=== PATIENT | male | born 1960 | race Caucasian/White ===

== ENCOUNTER 2016-03-03 09:24 | Emergency (ER) | payer OTHER ==
[~2016-03-03 09:24] MED LIST: PERCOCET1 TA1 PO; VISTARIL25 MG PO
--- NOTE | 2016-03-03 12:23 | DIAGNOSTIC IMAGING REPORT ---
PROCEDURE: US ART LOWER EXT DOPPLER-LEFT INDICATION: Left leg pain. TECHNIQUE: Color Doppler duplex imaging of the lower extremity was performed. COMPARISON: None. FINDINGS: VESSELS: There is minimal atheromatous plaque. LOWER EXTREMITY PEAK SYSTOLIC VELOCITIES: External iliac: Triphasic 90 cm/second. Common femoral artery: Triphasic 87 cm/second. Profunda femoral artery: Triphasic 55 cm/second. Proximal superficial femoral artery: Triphasic 115 cm/second. Mid superficial femoral artery: Triphasic 135 cm/second. Distal superficial femoral artery: Triphasic 91 cm/second. Popliteal artery: Triphasic 90 cm/second. Proximal posterior tibial artery: Triphasic 81 cm/second. Proximal anterior tibial artery: Triphasic 40 cm/second. Peroneal artery: N/A cm/second. Distal posterior tibial artery: Triphasic 83 cm/second. Dorsalis pedis artery: Triphasic 44 cm/second. IMPRESSION: 1. Minimal atheromatous plaque. 2. Otherwise negative arterial ultrasound of the left lower extremity. No evidence of arterial insufficiency.
--- NOTE | 2016-03-03 12:33 | DIAGNOSTIC IMAGING REPORT ---
PROCEDURE: US VENOUS - LEFT EXT INDICATION: SWELLING TECHNIQUE: Color Doppler duplex imaging of the deep and superficial venous system without and with compression. COMPARISON: None. FINDINGS: Deep and superficial venous system of the left lower extremity is within normal limits. There is no evidence of deep vein thrombosis or superficial thrombophlebitis. There is a 4.8 cm echogenic area with shadowing adjacent to the medial left knee. There is a 9 x 8.4 x 5.7 cm proteinaceous fluid collection in the proximal medial calf. IMPRESSION: 1. Negative venous ultrasound of the left lower extremity. No evidence of deep vein thrombosis or superficial thrombophlebitis. 2. There is 4.8 cm shadowing calcification adjacent to the medial left knee which may be post traumatic. 3. There is a 9 x 8.4 x 5.7 cm proteinaceous fluid collection in the proximal medial left calf most consistent with an evolving hematoma. 4. Radiographs of the left knee and tibia may be of assistance in evaluating. 5. Findings discussed Dr. Santos.
--- NOTE | 2016-03-03 13:38 | ED CLINICAL REPORT ---
Clinical Report - Physicians/Mid Levels [address] [place] [address] 03/03/2016 9:24 [id number] Time Seen: 09:55 Mar 03 2016. Arrived- By private vehicle. Historian- patient. CPT: ER phys charges level 4 (#[id number]). HISTORY OF PRESENT ILLNESS Chief Complaint: LOWER EXTREMITY PAIN. Severity is described as being moderate. It has become recently worse. The quality is noted to be sharp, aching and "pain". (hurt left ankle and foot 6 weeks ago. Was told to stay off of it and he did for 3 weeks until he had to go back to work. Over the past 2 weeks he has developed severe pain in the LLE from the knee down and notes his great toe has turned purple now.). Symptoms located in the area of the left knee, left leg, left foot and left ankle. The patient has not had redness. No swelling, bladder dysfunction, bowel dysfunction or motor loss. He has had difficulty walking. Moderate sensory loss involving the left foot. Patient notes an injury. Similar symptoms previously: None. Recent medical care: The patient was seen recently at this facility (6 weeks ago). Seen for similar symptoms. Evaluation/treatment: x-rays. Diagnosis: (left ankle sprain.). REVIEW OF SYSTEMS No cough, chest pain, difficulty breathing, fever or skin rash. No enlarged lymph nodes, neck pain, back pain, sore throat or abdominal pain. No vomiting or diarrhea. All systems otherwise negative, except as recorded above. PAST HISTORY ( Arthroscopy left knee by Dr Castañeda 1975: Cleaned up joint. Pt told he needs a total knee but is too young at this time. Chronic pain.). Medications: Advil Oral, as needed. Allergies: No Known Drug Allergy. SOCIAL HISTORY Light tobacco smoker (cigarette)- less than 1/2 a pack per day. Occasional alcohol use. History of drug use: marijuana. ADDITIONAL NOTES The nursing notes have been reviewed. PHYSICAL EXAM Vital Signs: 03/03/2016 09:36 BP: 122/106. HR: 76. RR: 20. O2 saturation: 100%. Temp: 97.5 F. Pain level now: 11/19. Appearance: Alert. Appears to be in pain. Patient in moderate distress. Eyes: Eyes normal inspection. ENT: Pharynx normal. Neck: Normal inspection. CVS: Normal heart rate and rhythm. Heart sounds normal. Respiratory: No respiratory distress. Breath sounds normal. Abdomen: Soft and nontender. Back: No tenderness. Skin: Skin warm. Normal skin color. Extremities: Left knee: moderate tenderness and deformity and mild swelling located in the posterior knee. Limited ROM secondary to pain. Small joint effusion present. Neurovascular intact distally. No ligamentous laxity present. No abrasion or ecchymosis. Left ankle: mild tenderness localized to the lateral ligaments. Limited ROM secondary to pain. Neurovascular intact distally. No ligamentous laxity present. No joint effusion. No swelling, laceration, abrasion, ecchymosis or deformity. Moderate left-sided calf tenderness. (no motor deficit. Reports numbness left foot and ankle but can feel light to puch.). Gait: The patient was unable to bear weight. Neuro, Vascular and Tendons: Left dorsalis pedis and left posterior tibial pulse deficit. Lower extremity capillary refill not prolonged. Neuro: Oriented X 3. No motor deficit. No sensory deficit. Reflexes normal. LABS, X-RAYS, AND EKG Lt Knee X-ray: No fracture. (severe DJD with abundant calcification and hyperostosis. No acute findings.). Views: AP, lateral and oblique. Technique: good. The X-rays were independently viewed by me and interpreted contemporaneously by me. Lower Extremity Sonography: Calcific mass in the lateral popliteal area , left knee. Liquified hematoma in the proximal calf. Study type: utilized color Doppler sonography. The exam was performed by a manufacturing plant technician. The study was independently viewed by me, interpreted by the radiologist and discussed with the radiologist. PROGRESS AND PROCEDURES Course of Care: Percocet 2 po : no change. Heplock Dilaudid 0.5 mg IV times 2 Ativan 0.5 mg IV 2 Patient's better with these meds. Patient is stable. Symptoms better. Discussed follow-up with orthopedic surgery to evaluate the knee the resolving hematoma and ankle injury. He will use crutches as needed for weightbearing. Patient/family counseled. Disposition: Discharged. Condition: stable. CLINICAL IMPRESSION Recovering left ankle sprain Severe DJD left knee Resolving hematoma left proximal calf. Chronic and progressive left knee pain. INSTRUCTIONS Use crutches as needed. No strenuous activity. You may walk and bear weight as tolerated. Warnings: Further evaluation is necessary. SEDATIVE MEDICATION: You were given sedative medication during your visit. Do not drive or operate dangerous machinery. Your Current Medications: CONTINUE TAKING THE FOLLOWING MEDICATIONS: Advil Oral : prn. Prescription Medications: Oxycodone/APAP 5 mg/325 mg: take 1-2 tablets orally every 4 hours as needed for pain. Dispense twenty-five (25). No refill. Soma 350 mg: Take 1 orally every 6 hours as needed for muscle spasm. Dispense twenty (20). No refills. Substitution is permissible. Follow-up: Follow up with an orthopedic surgeon. Call for the next available appointment. Understanding of the discharge instructions verbalized by patient and family. Discharge instructions reviewed with and understanding was verbalized by spouse. (Electronically signed by Ta Santos MD 03/03/2016 14:39)
--- NOTE | 2016-03-03 13:38 | ED NURSING NOTES ---
Clinical Report - Nurses [facility] [address] [place] [address] 03/03/2016 9:24 [id number] Triage time 09:36. Acuity: LEVEL 5. Chief Complaint: LEFT LOWER EXTREMITY PAIN and NUMBNESS. Location of symptoms- ("left great toe is turning a dark color"). Alert. --09:41 Yessy Gutierres R.N. 09:36 03/03/16. BP: 122/106. HR: 76. RR: 20. O2 saturation: 100%. Temp: 97.5 F. Pain level now: 11/19. --09:41 Yessy Gutierres R.N. Weight: 95.2 kg stated. Height/Length: 72 inches Per Patient. BMI: 28.5. --09:38 Yessy Gutierres R.N. Medications Advil Oral, as needed. --09:38 Yessy Gutierres R.N. Allergies No Known Drug Allergy. --09:38 Yessy Gutierres R.N. History Arrived by private vehicle. Historian: patient. Accompanied by spouse. Primary physician (none). ( Pt was "going to try to go to [facility]"). This occurred (6 weeks ago). Provoking / relieving factors: worsened by movement to the left, standing, walking and nothing; relieved by nothing. ( muscle spasms in arch of left foot). 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 SOCIAL HX: Heavy tobacco smoker (cigarette)- less than 1 pack per day. Occasional alcohol use. History of drug use: marijuana. --09:41 Yessy Gutierres R.N. Interventions ID band on patient. To room. --09:41 Yessy Gutierres R.N. PHYSICAL ASSESSMENT 09:42 03/03/16. GENERAL / NEURO / PSYCH: Appears in pain and anxious. --09:42 Yessy Gutierres R.N. NURSING PROGRESS NOTES 09:42 03/03/16. Patient identifiers checked. Call light placed in reach. Bed placed in lowest position. Patient ready for evaluation- chart flagged. --09:42 Yessy Gutierres R.N. 10:06 03/03/2016 Oxycodone-APAP (Oxycodone-Acetaminophen) PO 5/325 mg Tablets 2 tab given. Allergies verified, confirmed 5 rights and sedative warning given to the patient and patient's family. --10:06 Yessy Gutierres R.N. 10:06 03/03/2016 Flexeril (Cyclobenzaprine HCl) PO 10 mg given. Allergies verified and confirmed 5 rights. --10:06 Yessy Gutierres R.N. 10:34 03/03/2016 Site #1 started via IV in the right wrist with an 20g angiocath; one attempt. Blood drawn: rainbow set. Labeled in the presence of the patient and sent to the lab. Saline lock flushed with 10 mL saline. --10:44 Yessy Gutierres R.N. 10:36 03/03/2016 Ativan (LORazepam) IVP 0.5 mg given over 1 minute(s) via site #1. Confirmed 5 rights and sedative warning given. --10:45 Yessy Gutierres R.N. 10:38 03/03/2016 Dilaudid (HYDROmorphone HCl PF) IVP 0.5 mg given over 1 minute(s) via site #1. Allergies verified and confirmed 5 rights. IV flushed thoroughly pre- and post-medication administration. --10:45 Yessy Gutierres R.N. 10:32. ( Upon entering pt room, pt states he is "passing out", and noted that he was hyperventilating. Tried to get pt to slow down his breathing, and explained why. Pt seems annoyed with teaching. Pt instructed that we are going to give him some IV medications to help with his pain and anxiety.). --10:48 Yessy Gutierres R.N. 10:48 03/03/16. HR: 78. O2 saturation: 92%. Additional comments: continuous sat monitor placed. --10:49 Yessy Gutierres R.N. 11:52 03/03/16. HR: 69. O2 saturation: 96%. --11:52 Yessy Gutierres R.N. 12:10 03/03/16. BP: 112/82. HR: 75. RR: 18. O2 saturation: 98%. Pain level now: 08/19. --12:10 Yessy Gutierres R.N. 12:06 03/03/2016 Ativan (LORazepam) IVP 0.5 mg given over 1 minute(s) via site #1. Confirmed 5 rights and sedative warning given. --12:11 Yessy Gutierres R.N. 12:08 03/03/2016 Dilaudid (HYDROmorphone HCl PF) IVP 0.5 mg given over 1 minute(s) via site #1. Confirmed 5 rights and sedative warning given. --12:11 Yessy Gutierres R.N. 12:59 03/03/16. HR: 74. O2 saturation: 94%. Pain level now: 04/19. --12:59 Yessy Gutierres R.N. Locked/Released at 03/05/2016 10:28 by Marsah Rod R.N.
--- NOTE | 2016-03-03 13:38 | ED ORDER SUMMARY ---
..... Patient: HUNTER MICHAEL OrderSheet [facility] VisitID: [id number] [place] [address] 55y, M Registration Date/Time: 03/03/2016 ORDER SHEET Weight: 95.2 kg (stated) Allergies: No Known Drug Allergy GENERAL ORDERS: US Art Low Ext Doppler Left Urgent (10:03/03/2016 Soco LEE) (Ack 10:02 LMuller) (11:44 LMuller) US Venous Left Urgent (10:03/03/2016 Soco LEE) (Ack 10:02 LMuller) (11:44 LMuller) Knee 4V Left Urgent (12:42 03/03/2016 Soco LEE) (Ack 12:42 LMuller) (12:47 LMuller) MEDICATION ORDERS: Oxycodone-APAP PO 10/650 mg (NOW) (10:03/03/2016 Soco LEE) (10:06 LSullivan R.N.) Flexeril PO 10 mg (NOW) (10:03/03/2016 Soco LEE) (10:06 LSullivan R.N.) IV FLUIDS: IV Saline Lock (10:43 03/03/2016 LSullivan R.N. verbal order read back to Soco LEE) (10:44 LSullivan R.N.) Ativan IV 0.5 mg (HIGH ALERT MEDICATION, NOW) (10:43 03/03/2016 LSullivan R.N. verbal order read back to Soco LEE) (10:45 LSullivan R.N.) Dilaudid IV 0.5 mg (NOW) (10:43 03/03/2016 LSullivan R.N. verbal order read back to Soco LEE) (10:45 LSullivan R.N.) Dilaudid IV 0.5 mg (NOW) (12:03/03/2016 Soco LEE) (12:11 LSullivan R.N.) Ativan IV 0.5 mg (NOW) (12:03/03/2016 Soco LEE) (12:11 LSullivan R.N.) ORDER SHEET NOTES: [Electronically signed by Ta Santos MD (14:39 03/03/2016)] [Electronically signed by Marsha Rod R.N. (03/05/2016)] [Electronically locked/signed by Marsha Rod R.N. (03/05/2016)]
--- NOTE | 2016-03-03 13:38 | ED NURSING NOTES ---
Clinical Report - Nurses [facility] [address] [place] [address] 03/03/2016 9:24 [id number] Triage time 09:36. Acuity: LEVEL 5. Chief Complaint: LEFT LOWER EXTREMITY PAIN and NUMBNESS. Location of symptoms- ("left great toe is turning a dark color"). Alert. --09:41 Yessy Gutierres R.N. 09:36 03/03/16. BP: 122/106. HR: 76. RR: 20. O2 saturation: 100%. Temp: 97.5 F. Pain level now: 11/19. --09:41 Yessy Gutierres R.N. Weight: 95.2 kg stated. Height/Length: 72 inches Per Patient. BMI: 28.5. --09:38 Yessy Gutierres R.N. Medications Advil Oral, as needed. --09:38 Yessy Gutierres R.N. Allergies No Known Drug Allergy. --09:38 Yessy Gutierres R.N. History Arrived by private vehicle. Historian: patient. Accompanied by spouse. Primary physician (none). ( Pt was "going to try to go to [facility]"). This occurred (6 weeks ago). Provoking / relieving factors: worsened by movement to the left, standing, walking and nothing; relieved by nothing. ( muscle spasms in arch of left foot). 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 SOCIAL HX: Heavy tobacco smoker (cigarette)- less than 1 pack per day. Occasional alcohol use. History of drug use: marijuana. --09:41 Yessy Gutierres R.N. Interventions ID band on patient. To room. --09:41 Yessy Gutierres R.N. PHYSICAL ASSESSMENT 09:42 03/03/16. GENERAL / NEURO / PSYCH: Appears in pain and anxious. --09:42 Yessy Gutierres R.N. NURSING PROGRESS NOTES 09:42 03/03/16. Patient identifiers checked. Call light placed in reach. Bed placed in lowest position. Patient ready for evaluation- chart flagged. --09:42 Yessy Gutierres R.N. 10:06 03/03/2016 Oxycodone-APAP (Oxycodone-Acetaminophen) PO 5/325 mg Tablets 2 tab given. Allergies verified, confirmed 5 rights and sedative warning given to the patient and patient's family. --10:06 Yessy Gutierres R.N. 10:06 03/03/2016 Flexeril (Cyclobenzaprine HCl) PO 10 mg given. Allergies verified and confirmed 5 rights. --10:06 Yessy Gutierres R.N. 10:34 03/03/2016 Site #1 started via IV in the right wrist with an 20g angiocath; one attempt. Blood drawn: rainbow set. Labeled in the presence of the patient and sent to the lab. Saline lock flushed with 10 mL saline. --10:44 Yessy Gutierres R.N. 10:36 03/03/2016 Ativan (LORazepam) IVP 0.5 mg given over 1 minute(s) via site #1. Confirmed 5 rights and sedative warning given. --10:45 Yessy Gutierres R.N. 10:38 03/03/2016 Dilaudid (HYDROmorphone HCl PF) IVP 0.5 mg given over 1 minute(s) via site #1. Allergies verified and confirmed 5 rights. IV flushed thoroughly pre- and post-medication administration. --10:45 Yessy Gutierres R.N. 10:32. ( Upon entering pt room, pt states he is "passing out", and noted that he was hyperventilating. Tried to get pt to slow down his breathing, and explained why. Pt seems annoyed with teaching. Pt instructed that we are going to give him some IV medications to help with his pain and anxiety.). --10:48 Yessy Gutierres R.N. 10:48 03/03/16. HR: 78. O2 saturation: 92%. Additional comments: continuous sat monitor placed. --10:49 Yessy Gutierres R.N. 11:52 03/03/16. HR: 69. O2 saturation: 96%. --11:52 Yessy Gutierres R.N. 12:10 03/03/16. BP: 112/82. HR: 75. RR: 18. O2 saturation: 98%. Pain level now: 08/19. --12:10 Yessy Gutierres R.N. 12:06 03/03/2016 Ativan (LORazepam) IVP 0.5 mg given over 1 minute(s) via site #1. Confirmed 5 rights and sedative warning given. --12:11 Yessy Gutierres R.N. 12:08 03/03/2016 Dilaudid (HYDROmorphone HCl PF) IVP 0.5 mg given over 1 minute(s) via site #1. Confirmed 5 rights and sedative warning given. --12:11 Yessy Gutierres R.N. 12:59 03/03/16. HR: 74. O2 saturation: 94%. Pain level now: 04/19. --12:59 Yessy Gutierres R.N. Locked/Released at 03/05/2016 10:28 by Marsha Rod R.N.
--- NOTE | 2016-03-03 13:38 | ED CLINICAL REPORT ---
Clinical Report - Physicians/Mid Levels [facility] [address] [place] [address] 03/03/2016 9:24 [id number] Time Seen: 09:55 Mar 03 2016. Arrived- By private vehicle. Historian- patient. CPT: ER phys charges level 4 (#[id number]). HISTORY OF PRESENT ILLNESS Chief Complaint: LOWER EXTREMITY PAIN. Severity is described as being moderate. It has become recently worse. The quality is noted to be sharp, aching and "pain". (hurt left ankle and foot 6 weeks ago. Was told to stay off of it and he did for 3 weeks until he had to go back to work. Over the past 2 weeks he has developed severe pain in the LLE from the knee down and notes his great toe has turned purple now.). Symptoms located in the area of the left knee, left leg, left foot and left ankle. The patient has not had redness. No swelling, bladder dysfunction, bowel dysfunction or motor loss. He has had difficulty walking. Moderate sensory loss involving the left foot. Patient notes an injury. Similar symptoms previously: None. Recent medical care: The patient was seen recently at this facility (6 weeks ago). Seen for similar symptoms. Evaluation/treatment: x-rays. Diagnosis: (left ankle sprain.). REVIEW OF SYSTEMS No cough, chest pain, difficulty breathing, fever or skin rash. No enlarged lymph nodes, neck pain, back pain, sore throat or abdominal pain. No vomiting or diarrhea. All systems otherwise negative, except as recorded above. PAST HISTORY ( Arthroscopy left knee by Dr Castañeda 1975: Cleaned up joint. Pt told he needs a total knee but is too young at this time. Chronic pain.). Medications: Advil Oral, as needed. Allergies: No Known Drug Allergy. SOCIAL HISTORY Light tobacco smoker (cigarette)- less than 1/2 a pack per day. Occasional alcohol use. History of drug use: marijuana. ADDITIONAL NOTES The nursing notes have been reviewed. PHYSICAL EXAM Vital Signs: 03/03/2016 09:36 BP: 122/106. HR: 76. RR: 20. O2 saturation: 100%. Temp: 97.5 F. Pain level now: 11/19. Appearance: Alert. Appears to be in pain. Patient in moderate distress. Eyes: Eyes normal inspection. ENT: Pharynx normal. Neck: Normal inspection. CVS: Normal heart rate and rhythm. Heart sounds normal. Respiratory: No respiratory distress. Breath sounds normal. Abdomen: Soft and nontender. Back: No tenderness. Skin: Skin warm. Normal skin color. Extremities: Left knee: moderate tenderness and deformity and mild swelling located in the posterior knee. Limited ROM secondary to pain. Small joint effusion present. Neurovascular intact distally. No ligamentous laxity present. No abrasion or ecchymosis. Left ankle: mild tenderness localized to the lateral ligaments. Limited ROM secondary to pain. Neurovascular intact distally. No ligamentous laxity present. No joint effusion. No swelling, laceration, abrasion, ecchymosis or deformity. Moderate left-sided calf tenderness. (no motor deficit. Reports numbness left foot and ankle but can feel light to puch.). Gait: The patient was unable to bear weight. Neuro, Vascular and Tendons: Left dorsalis pedis and left posterior tibial pulse deficit. Lower extremity capillary refill not prolonged. Neuro: Oriented X 3. No motor deficit. No sensory deficit. Reflexes normal. LABS, X-RAYS, AND EKG Lt Knee X-ray: No fracture. (severe DJD with abundant calcification and hyperostosis. No acute findings.). Views: AP, lateral and oblique. Technique: good. The X-rays were independently viewed by me and interpreted contemporaneously by me. Lower Extremity Sonography: Calcific mass in the lateral popliteal area , left knee. Liquified hematoma in the proximal calf. Study type: utilized color Doppler sonography. The exam was performed by a retread technician. The study was independently viewed by me, interpreted by the radiologist and discussed with the radiologist. PROGRESS AND PROCEDURES Course of Care: Percocet 2 po : no change. Heplock Dilaudid 0.5 mg IV times 2 Ativan 0.5 mg IV 2 Patient's better with these meds. Patient is stable. Symptoms better. Discussed follow-up with orthopedic surgery to evaluate the knee the resolving hematoma and ankle injury. He will use crutches as needed for weightbearing. Patient/family counseled. Disposition: Discharged. Condition: stable. CLINICAL IMPRESSION Recovering left ankle sprain Severe DJD left knee Resolving hematoma left proximal calf. Chronic and progressive left knee pain. INSTRUCTIONS Use crutches as needed. No strenuous activity. You may walk and bear weight as tolerated. Warnings: Further evaluation is necessary. SEDATIVE MEDICATION: You were given sedative medication during your visit. Do not drive or operate dangerous machinery. Your Current Medications: CONTINUE TAKING THE FOLLOWING MEDICATIONS: Advil Oral : prn. Prescription Medications: Oxycodone/APAP 5 mg/325 mg: take 1-2 tablets orally every 4 hours as needed for pain. Dispense twenty-five (25). No refill. Soma 350 mg: Take 1 orally every 6 hours as needed for muscle spasm. Dispense twenty (20). No refills. Substitution is permissible. Follow-up: Follow up with an orthopedic surgeon. Call for the next available appointment. Understanding of the discharge instructions verbalized by patient and family. Discharge instructions reviewed with and understanding was verbalized by spouse. (Electronically signed by Ta Santos MD 03/03/2016 14:39)
--- NOTE | 2016-03-03 13:38 | ED ORDER SUMMARY ---
..... Patient: HUNTER MICHAEL OrderSheet [facility] VisitID: [id number] [place] [address] 55y, M Registration Date/Time: 03/03/2016 ORDER SHEET Weight: 95.2 kg (stated) Allergies: No Known Drug Allergy GENERAL ORDERS: US Art Low Ext Doppler Left Urgent (10:03/03/2016 Soco LEE) (Ack 10:02 LMuller) (11:44 LMuller) US Venous Left Urgent (10:03/03/2016 Soco LEE) (Ack 10:02 LMuller) (11:44 LMuller) Knee 4V Left Urgent (12:42 03/03/2016 Soco LEE) (Ack 12:42 LMuller) (12:47 LMuller) MEDICATION ORDERS: Oxycodone-APAP PO 10/650 mg (NOW) (10:03/03/2016 Soco LEE) (10:06 LSullivan R.N.) Flexeril PO 10 mg (NOW) (10:03/03/2016 Soco LEE) (10:06 LSullivan R.N.) IV FLUIDS: IV Saline Lock (10:43 03/03/2016 LSullivan R.N. verbal order read back to Soco LEE) (10:44 LSullivan R.N.) Ativan IV 0.5 mg (HIGH ALERT MEDICATION, NOW) (10:43 03/03/2016 LSullivan R.N. verbal order read back to Soco LEE) (10:45 LSullivan R.N.) Dilaudid IV 0.5 mg (NOW) (10:43 03/03/2016 LSullivan R.N. verbal order read back to Soco LEE) (10:45 LSullivan R.N.) Dilaudid IV 0.5 mg (NOW) (12:03/03/2016 Soco LEE) (12:11 LSullivan R.N.) Ativan IV 0.5 mg (NOW) (12:03/03/2016 Soco LEE) (12:11 LSullivan R.N.) ORDER SHEET NOTES: [Electronically signed by Ta Santos MD (14:39 03/03/2016)] [Electronically signed by Marsha Rod R.N. (03/05/2016)] [Electronically locked/signed by Marsha Rod R.N. (03/05/2016)]
--- NOTE | 2016-03-03 15:38 | DIAGNOSTIC IMAGING REPORT ---
PROCEDURE: XR KNEE 4 VIEWS - LEFT INDICATION: Left knee pain. Follow-up calcification. TECHNIQUE: Four views of the left knee were acquired. COMPARISON: Comparison is made to venous ultrasound left lower extremity earlier today (03/01/2016). FINDINGS: There is severe arthritic changes in joint space narrowing of all three compartments. This is associated with 1 cm chronic lateral subluxation of the tibia. In addition, there are multiple large loose bodies in the suprapatellar region, medial left knee, with a large 5.6 cm calcified loose body in the popliteal fossa (most likely within a popliteal cyst). Moderate left knee effusion IMPRESSION: 1. Severe osteoarthritic changes of the left knee with multiple large loose bodies (largest 5.6 cm within the popliteal cyst). 2. Findings discussed with Dr. Ta Santos.
--- NOTE | 2016-03-05 10:28 | ED MAR SUMMARY ---
..... Medication Administration Record [facility] [address] [place] [address] Patient: HUNTER MICHAEL Visit ID: [id number] 55y, M Weight: 95.2 kg Height/Length: 72 in BMI: 28.5 ALLERGIES: No Known Drug Allergy Given 10:03/03/2016 Yessy Gutierres R.N. Medication Administered: OXYCODONE-APAP [PO] (OXYCODONE-ACETAMINOPHEN), Dose: 2 tab 5/325 mg Tablets PO. Medication Ordered: Oxycodone-APAP PO 10/650 mg (NOW). Given 10:03/03/2016 Yessy Gutierres R.N. Medication Administered: FLEXERIL [PO] (CYCLOBENZAPRINE HCL), Dose: 10 mg PO. Medication Ordered: Flexeril PO 10 mg (NOW). Given 10:03/03/2016 Yessy Gutierres R.N. Medication Administered: ATIVAN [IVP] (LORAZEPAM), Dose: 0.5 mg IVP over 1 minute(s), Site: #1 right wrist. Medication Ordered: Ativan IV 0.5 mg (HIGH ALERT MEDICATION, NOW). Given 10:03/03/2016 Yessy Gutierres R.N. Medication Administered: DILAUDID [IVP] (HYDROMORPHONE HCL PF), Dose: 0.5 mg IVP over 1 minute(s), Site: #1 right wrist. Medication Ordered: Dilaudid IV 0.5 mg (NOW). Given 12:03/03/2016 Yessy Gutierres R.N. Medication Administered: ATIVAN [IVP] (LORAZEPAM), Dose: 0.5 mg IVP over 1 minute(s), Site: #1 right wrist. Medication Ordered: Ativan IV 0.5 mg (NOW). Given 12:08 03/03/2016 Yessy Gutierres R.N. Medication Administered: DILAUDID [IVP] (HYDROMORPHONE HCL PF), Dose: 0.5 mg IVP over 1 minute(s), Site: #1 right wrist. Medication Ordered: Dilaudid IV 0.5 mg (NOW).
--- NOTE | 2016-03-05 10:28 | ED DISCHARGE INSTRUCTIONS ---
Patient: HUNTER MICHAEL General Instructions [facility] VisitID: [id number] [place] [address] 55y, M Registration Date/Time: 03/03/2016 Recovering left ankle sprain Severe DJD left knee Resolving hematoma left proximal calf. Chronic and progressive left knee pain. INSTRUCTIONS Use crutches as needed. No strenuous activity. You may walk and bear weight as tolerated. Warnings: Further evaluation is necessary. SEDATIVE MEDICATION: You were given sedative medication during your visit. Do not drive or operate dangerous machinery. Your Current Medications: CONTINUE TAKING THE FOLLOWING MEDICATIONS: Advil Oral : prn. Prescription Medications: Oxycodone/APAP 5 mg/325 mg: take 1-2 tablets orally every 4 hours as needed for pain. Dispense twenty-five (25). No refill. Soma 350 mg: Take 1 orally every 6 hours as needed for muscle spasm. Dispense twenty (20). No refills. Substitution is permissible. Follow-up: Follow up with an orthopedic surgeon. Call for the next available appointment. Understanding of the discharge instructions verbalized by patient and family. Discharge instructions reviewed with and understanding was verbalized by spouse. ADDITIONAL INFORMATION Crutch Walking Crutch Adjustment Make sure the crutches you use are adjusted to fit you. When you stand, there should be room to fit 2-3 fingers between the top of the crutch and your armpit. Your elbow should be slightly bent when holding the hand student support services director. Crutch Walking: Place the crutches forward 12" in front of and 6" to the side of your feet. Lean your weight forward as you push down on the handgrips. Your weight should be on your hands and yourstrong leg, not your armpits . Let your body swing through, landing on the strong leg. Advance the crutches forward again. The crutch and the injured leg should move together. Going Up Steps: ("Up with the good") With both crutches on the same step as your feet, push down on the handgrips. Balancing with very light pressure on the weak leg, let your hands support your weight as you raise your strong leg onto the next higher step. Transfer all your weight to your strong leg (still bent) as you move the crutches up to the next step alongside the strong leg. With your weight evenly balanced on the two crutches and your strong leg, straighten your strong knee as you raise the weak leg up to the next step. Going Down Steps: ("Down with the bad") With both crutches on the same step as your feet, push down on the handgrips. With your weight evenly balanced on the two crutches and your strong leg, bend your strong knee as you lower the weak leg down to the next step. Let your strong leg support you (still bent) as you move the crutches down alongside the weak leg. Transfer your weight to your hands, balancing with very light pressure on the weak leg as you lower your strong leg alongside your weak leg. Oxycodone Hydrochloride, Acetaminophen Oral tablet What is this medicine? ACETAMINOPHEN; OXYCODONE (a set a MARGARITA tolu fen; ox i KOE done) is a pain reliever. It is used to treat mild to moderate pain. How should I use this medicine? Take this medicine by mouth with a full glass of water. Follow the directions on the prescription label. Take your medicine at regular intervals. Do not take your medicine more often than directed. Talk to your pantry chef regarding the use of this medicine in children. Special care may be needed. Patients over 65 years old may have a stronger reaction and need a smaller dose. What side effects may I notice from receiving this medicine? Side effects that you should report to your doctor or health health care facilities inspector as soon as possible: allergic reactions like skin rash, itching or hives, swelling of the face, lips, or tongue breathing difficulties, wheezing confusion light headedness or fainting spells severe stomach pain yellowing of the skin or the whites of the eyes Side effects that usually do not require medical attention (report to your doctor or health health care facilities inspector if they continue or are bothersome): dizziness drowsiness nausea vomiting What may interact with this medicine? alcohol antihistamines barbiturates like amobarbital, butalbital, butabarbital, methohexital, pentobarbital, phenobarbital, thiopental, and secobarbital benztropine drugs for bladder problems like solifenacin, trospium, oxybutynin, tolterodine, hyoscyamine, and methscopolamine drugs for breathing problems like ipratropium and tiotropium drugs for certain stomach or intestine problems like propantheline, homatropine methylbromide, glycopyrrolate, atropine, belladonna, and dicyclomine general anesthetics like etomidate, ketamine, nitrous oxide, propofol, desflurane, enflurane, halothane, isoflurane, and sevoflurane medicines for depression, anxiety, or psychotic disturbances medicines for sleep muscle relaxants naltrexone narcotic medicines (opiates) for pain phenothiazines like perphenazine, thioridazine, chlorpromazine, mesoridazine, fluphenazine, prochlorperazine, promazine, and trifluoperazine scopolamine tramadol trihexyphenidyl What if I miss a dose? If you miss a dose, take it as soon as you can. If it is almost time for your next dose, take only that dose. Do not take double or extra doses. Where should I keep my medicine? Keep out of the reach of children. This medicine can be abused. Keep your medicine in a safe place to protect it from theft. Do not share this medicine with anyone. Selling or giving away this medicine is dangerous and against the law. Store at room temperature between 20 and 25 degrees C (68 and 77 degrees F). Keep container tightly closed. Protect from light. This medicine may cause accidental overdose and if it is taken by other adults, children, or pets. Flush any unused medicine down the toilet to reduce the chance of harm. Do not use the medicine after the expiration date. What should I tell my health care provider before I take this medicine? They need to know if you have any of these conditions: brain tumor Crohn's disease, inflammatory bowel disease, or ulcerative colitis drink more than 3 alcohol containing drinks per day drug abuse or addiction head injury heart or circulation problems kidney disease or problems going to the bathroom liver disease lung disease, asthma, or breathing problems an unusual or allergic reaction to acetaminophen, oxycodone, other opioid analgesics, other medicines, foods, dyes, or preservatives or trying to get breast-feeding What should I watch for while using this medicine? Tell your doctor or health health care facilities inspector if your pain does not go away, if it gets worse, or if you have new or a different type of pain. You may develop tolerance to the medicine. Tolerance means that you will need a higher dose of the medication for pain relief. Tolerance is normal and is expected if you take this medicine for a long time. Do not suddenly stop taking your medicine because you may develop a severe reaction. Your body becomes used to the medicine. This does NOT mean you are addicted. Addiction is a behavior related to getting and using a drug for a non-medical reason. If you have pain, you have a medical reason to take pain medicine. Your doctor will tell you how much medicine to take. If your doctor wants you to stop the medicine, the dose will be slowly lowered over time to avoid any side effects. You may get drowsy or dizzy. Do not drive, use machinery, or do anything that needs mental alertness until you know how this medicine affects you. Do not stand or sit up quickly, especially if you are an older patient. This reduces the risk of dizzy or fainting spells. Alcohol may interfere with the effect of this medicine. Avoid alcoholic drinks. There are different types of narcotic medicines (opiates) for pain. If you take more than one type at the same time, you may have more side effects. Give your health care provider a list of all medicines you use. Your doctor will tell you how much medicine to take. Do not take more medicine than directed. Call emergency for help if you have problems breathing. The medicine will cause constipation. Try to have a bowel movement at least every 2 to 3 days. If you do not have a bowel movement for 3 days, call your doctor or health health care facilities inspector. Do not take Tylenol (acetaminophen) or medicines that have acetaminophen with this medicine. Too much acetaminophen can be very dangerous. Many nonprescription medicines contain acetaminophen. Always read the labels carefully to avoid taking more acetaminophen. You have been given the following additional information: Crutch Walking Oxycodone Hydrochloride, Acetaminophen Oral tablet No strenuous activity. You may walk and bear weight as tolerated. (Electronically signed by Ta Santos MD 03/03/2016 14:39)
--- NOTE | 2016-03-05 10:28 | ED MED RECONCILIATION SUMMARY ---
Patient: HUNTER MICHAEL Medication Reconciliation Report [facility] VisitID: [id number] [address] [place] [address] 55y, M Registration Date/Time: 03/03/2016 Weight: 95.2 kg Height/Length: 72 in. BMI: 28.5 ALLERGIES: No Known Drug Allergy The patient's Home Medications are listed below: CONTINUE TAKING THE FOLLOWING MEDICATIONS: Advil Oral The source(s) of the original Home Medication information: Not obtained. The following Medications were given to the patient in the Emergency Department: Oxycodone-APAP [PO] PO 2 tab, administered: 03/03/2016 10:06:00 AM Flexeril [PO] PO 10 mg, administered: 03/03/2016 10:06:00 AM Ativan [IVP] IVP 0.5 mg, administered: 03/03/2016 10:36:00 AM Dilaudid [IVP] IVP 0.5 mg, administered: 03/03/2016 10:38:00 AM Ativan [IVP] IVP 0.5 mg, administered: 03/03/2016 12:06:00 PM Dilaudid [IVP] IVP 0.5 mg, administered: 03/03/2016 12:08:00 PM The following Medications were prescribed to the patient: Oxycodone/APAP 5 mg/325 mg: take 1-2 tablets orally every 4 hours as needed for pain. Dispense twenty-five (25). No refill. -- Ta Santos MD Soma 350 mg: Take 1 orally every 6 hours as needed for muscle spasm. Dispense twenty (20). No refills. Substitution is permissible. -- Ta Santos MD
--- NOTE | 2016-03-05 10:28 | ED MAR SUMMARY ---
..... Medication Administration Record [facility] [address] [place] [address] Patient: HUNTER MICHAEL Visit ID: [id number] 55y, M Weight: 95.2 kg Height/Length: 72 in BMI: 28.5 ALLERGIES: No Known Drug Allergy Given 10:03/03/2016 Yessy Gutierres R.N. Medication Administered: OXYCODONE-APAP [PO] (OXYCODONE-ACETAMINOPHEN), Dose: 2 tab 5/325 mg Tablets PO. Medication Ordered: Oxycodone-APAP PO 10/650 mg (NOW). Given 10:03/03/2016 Yessy Gutierres R.N. Medication Administered: FLEXERIL [PO] (CYCLOBENZAPRINE HCL), Dose: 10 mg PO. Medication Ordered: Flexeril PO 10 mg (NOW). Given 10:03/03/2016 Ysesy Gutierres R.N. Medication Administered: ATIVAN [IVP] (LORAZEPAM), Dose: 0.5 mg IVP over 1 minute(s), Site: #1 right wrist. Medication Ordered: Ativan IV 0.5 mg (HIGH ALERT MEDICATION, NOW). Given 10:03/03/2016 Yessy Gutierres R.N. Medication Administered: DILAUDID [IVP] (HYDROMORPHONE HCL PF), Dose: 0.5 mg IVP over 1 minute(s), Site: #1 right wrist. Medication Ordered: Dilaudid IV 0.5 mg (NOW). Given 12:03/03/2016 Yessy Gutierres R.N. Medication Administered: ATIVAN [IVP] (LORAZEPAM), Dose: 0.5 mg IVP over 1 minute(s), Site: #1 right wrist. Medication Ordered: Ativan IV 0.5 mg (NOW). Given 12:08 03/03/2016 Yessy Gutierres R.N. Medication Administered: DILAUDID [IVP] (HYDROMORPHONE HCL PF), Dose: 0.5 mg IVP over 1 minute(s), Site: #1 right wrist. Medication Ordered: Dilaudid IV 0.5 mg (NOW).
--- NOTE | 2016-03-05 10:28 | ED MED RECONCILIATION SUMMARY ---
Patient: HUNTER MICHAEL Medication Reconciliation Report [facility] VisitID: [id number] [address] [place] [address] 55y, M Registration Date/Time: 03/03/2016 Weight: 95.2 kg Height/Length: 72 in. BMI: 28.5 ALLERGIES: No Known Drug Allergy The patient's Home Medications are listed below: CONTINUE TAKING THE FOLLOWING MEDICATIONS: Advil Oral The source(s) of the original Home Medication information: Not obtained. The following Medications were given to the patient in the Emergency Department: Oxycodone-APAP [PO] PO 2 tab, administered: 03/03/2016 10:06:00 AM Flexeril [PO] PO 10 mg, administered: 03/03/2016 10:06:00 AM Ativan [IVP] IVP 0.5 mg, administered: 03/03/2016 10:36:00 AM Dilaudid [IVP] IVP 0.5 mg, administered: 03/03/2016 10:38:00 AM Ativan [IVP] IVP 0.5 mg, administered: 03/03/2016 12:06:00 PM Dilaudid [IVP] IVP 0.5 mg, administered: 03/03/2016 12:08:00 PM The following Medications were prescribed to the patient: Oxycodone/APAP 5 mg/325 mg: take 1-2 tablets orally every 4 hours as needed for pain. Dispense twenty-five (25). No refill. -- Ta Santos MD Soma 350 mg: Take 1 orally every 6 hours as needed for muscle spasm. Dispense twenty (20). No refills. Substitution is permissible. -- Ta Santos MD
--- NOTE | 2016-03-05 10:28 | ED DISCHARGE INSTRUCTIONS ---
Patient: HUNTER MICHAEL General Instructions [facility] VisitID: [id number] [place] [address] 55y, M Registration Date/Time: 03/03/2016 Recovering left ankle sprain Severe DJD left knee Resolving hematoma left proximal calf. Chronic and progressive left knee pain. INSTRUCTIONS Use crutches as needed. No strenuous activity. You may walk and bear weight as tolerated. Warnings: Further evaluation is necessary. SEDATIVE MEDICATION: You were given sedative medication during your visit. Do not drive or operate dangerous machinery. Your Current Medications: CONTINUE TAKING THE FOLLOWING MEDICATIONS: Advil Oral : prn. Prescription Medications: Oxycodone/APAP 5 mg/325 mg: take 1-2 tablets orally every 4 hours as needed for pain. Dispense twenty-five (25). No refill. Soma 350 mg: Take 1 orally every 6 hours as needed for muscle spasm. Dispense twenty (20). No refills. Substitution is permissible. Follow-up: Follow up with an orthopedic surgeon. Call for the next available appointment. Understanding of the discharge instructions verbalized by patient and family. Discharge instructions reviewed with and understanding was verbalized by spouse. ADDITIONAL INFORMATION Crutch Walking Crutch Adjustment Make sure the crutches you use are adjusted to fit you. When you stand, there should be room to fit 2-3 fingers between the top of the crutch and your armpit. 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 Crutch Walking: Place the crutches forward 12" in front of and 6" to the side of your feet. Lean your weight forward as you push down on the handgrips. Your weight should be on your hands and yourstrong leg, not your armpits . Let your body swing through, landing on the strong leg. Advance the crutches forward again. The crutch and the injured leg should move together. Going Up Steps: ("Up with the good") With both crutches on the same step as your feet, push down on the handgrips. Balancing with very light pressure on the weak leg, let your hands support your weight as you raise your strong leg onto the next higher step. Transfer all your weight to your strong leg (still bent) as you move the crutches up to the next step alongside the strong leg. With your weight evenly balanced on the two crutches and your strong leg, straighten your strong knee as you raise the weak leg up to the next step. Going Down Steps: ("Down with the bad") With both crutches on the same step as your feet, push down on the handgrips. With your weight evenly balanced on the two crutches and your strong leg, bend your strong knee as you lower the weak leg down to the next step. Let your strong leg support you (still bent) as you move the crutches down alongside the weak leg. Transfer your weight to your hands, balancing with very light pressure on the weak leg as you lower your strong leg alongside your weak leg. Oxycodone Hydrochloride, Acetaminophen Oral tablet What is this medicine? ACETAMINOPHEN; OXYCODONE (a set a MARGARITA tolu fen; ox i KOE done) is a pain reliever. It is used to treat mild to moderate pain. How should I use this medicine? Take this medicine by mouth with a full glass of water. Follow the directions on the prescription label. Take your medicine at regular intervals. Do not take your medicine more often than directed. Talk to your securities consultant regarding the use of this medicine in children. Special care may be needed. Patients over 65 years old may have a stronger reaction and need a smaller dose. What side effects may I notice from receiving this medicine? Side effects that you should report to your doctor or health pet care worker as soon as possible: allergic reactions like skin rash, itching or hives, swelling of the face, lips, or tongue breathing difficulties, wheezing confusion light headedness or fainting spells severe stomach pain yellowing of the skin or the whites of the eyes Side effects that usually do not require medical attention (report to your doctor or health pet care worker if they continue or are bothersome): dizziness drowsiness nausea vomiting What may interact with this medicine? alcohol antihistamines barbiturates like amobarbital, butalbital, butabarbital, methohexital, pentobarbital, phenobarbital, thiopental, and secobarbital benztropine drugs for bladder problems like solifenacin, trospium, oxybutynin, tolterodine, hyoscyamine, and methscopolamine drugs for breathing problems like ipratropium and tiotropium drugs for certain stomach or intestine problems like propantheline, homatropine methylbromide, glycopyrrolate, atropine, belladonna, and dicyclomine general anesthetics like etomidate, ketamine, nitrous oxide, propofol, desflurane, enflurane, halothane, isoflurane, and sevoflurane medicines for depression, anxiety, or psychotic disturbances medicines for sleep muscle relaxants naltrexone narcotic medicines (opiates) for pain phenothiazines like perphenazine, thioridazine, chlorpromazine, mesoridazine, fluphenazine, prochlorperazine, promazine, and trifluoperazine scopolamine tramadol trihexyphenidyl What if I miss a dose? If you miss a dose, take it as soon as you can. If it is almost time for your next dose, take only that dose. Do not take double or extra doses. Where should I keep my medicine? Keep out of the reach of children. This medicine can be abused. Keep your medicine in a safe place to protect it from theft. Do not share this medicine with anyone. Selling or giving away this medicine is dangerous and against the law. Store at room temperature between 20 and 25 degrees C (68 and 77 degrees F). Keep container tightly closed. Protect from light. This medicine may cause accidental overdose and if it is taken by other adults, children, or pets. Flush any unused medicine down the toilet to reduce the chance of harm. Do not use the medicine after the expiration date. What should I tell my health care provider before I take this medicine? They need to know if you have any of these conditions: brain tumor Crohn's disease, inflammatory bowel disease, or ulcerative colitis drink more than 3 alcohol containing drinks per day drug abuse or addiction head injury heart or circulation problems kidney disease or problems going to the bathroom liver disease lung disease, asthma, or breathing problems an unusual or allergic reaction to acetaminophen, oxycodone, other opioid analgesics, other medicines, foods, dyes, or preservatives or trying to get breast-feeding What should I watch for while using this medicine? Tell your doctor or health pet care worker if your pain does not go away, if it gets worse, or if you have new or a different type of pain. You may develop tolerance to the medicine. Tolerance means that you will need a higher dose of the medication for pain relief. Tolerance is normal and is expected if you take this medicine for a long time. Do not suddenly stop taking your medicine because you may develop a severe reaction. Your body becomes used to the medicine. This does NOT mean you are addicted. Addiction is a behavior related to getting and using a drug for a non-medical reason. If you have pain, you have a medical reason to take pain medicine. Your doctor will tell you how much medicine to take. If your doctor wants you to stop the medicine, the dose will be slowly lowered over time to avoid any side effects. You may get drowsy or dizzy. Do not drive, use machinery, or do anything that needs mental alertness until you know how this medicine affects you. Do not stand or sit up quickly, especially if you are an older patient. This reduces the risk of dizzy or fainting spells. Alcohol may interfere with the effect of this medicine. Avoid alcoholic drinks. There are different types of narcotic medicines (opiates) for pain. If you take more than one type at the same time, you may have more side effects. Give your health care provider a list of all medicines you use. Your doctor will tell you how much medicine to take. Do not take more medicine than directed. Call emergency for help if you have problems breathing. The medicine will cause constipation. Try to have a bowel movement at least every 2 to 3 days. If you do not have a bowel movement for 3 days, call your doctor or health pet care worker. Do not take Tylenol (acetaminophen) or medicines that have acetaminophen with this medicine. Too much acetaminophen can be very dangerous. Many nonprescription medicines contain acetaminophen. Always read the labels carefully to avoid taking more acetaminophen. You have been given the following additional information: Crutch Walking Oxycodone Hydrochloride, Acetaminophen Oral tablet No strenuous activity. You may walk and bear weight as tolerated. (Electronically signed by Ta Santos MD 03/03/2016 14:39)
== END 2016-03-03 13:16 | disposition home or self-care (01) ==
LOC: ED SRH 09:24
DX: M17.9 Osteoarthritis of knee, unspecified (principal); S93.402D Sprain of unspecified ligament of left ankle, subsequent encounter; X58.XXXD Exposure to other specified factors, subsequent encounter; M25.561 Pain in right knee; G89.29 Other chronic pain; F17.210 Nicotine dependence, cigarettes, uncomplicated